=== PATIENT | female | born 1990 | race Caucasian/White ===

== ENCOUNTER 2016-03-29 20:02 | Emergency (ER) | payer SELFPAY ==
[2016-03-29] MEDS ORDERED: AUGMENTIN 875 MG TAB As Ordered ONE (21:52)
--- NOTE | 2016-03-29 22:34 | EDDOCDS ---
Nurse's Notes [facility] Name: Stephanie Palacios Age: 25 yrs Sex: Female : 1990 Arrival Date: 03/29/2016 Time: 20:02 Bed I8 / 16 Private MD: Obdulio Turner Diagnosis: Acute serous otitis media, left ear Presentation: 03/29 20:08 Presenting complaint: Patient states: Sore throat for two hours. states that it hurts jo3 to swallow. Risk factors: Stridor is not present. Drooling is not present. Shortness of breath is not present. Cellulitis is not present. Adult Sepsis Screening: The patient does not have new or worsening altered mentation. Patient's respiratory rate is less than 22. Systolic blood pressure is greater than 100. Patient has a qSOFA score of 0- Negative Sepsis Screen. Suicide/Homicide risk assessment- the patient denies having any suicidal and/or homicidal ideations and does not present with any other emotional, behavioral or mental health complaints. Status: Patient is not a conference services manager or dependent. Transition of care: patient was not received from another setting of care. 20:08 Acuity: LAURA Level 4 jo3 20:08 Method Of Arrival: Walkin/Carried/Asstd jo3 Triage Assessment: 20:10 General: Appears in no apparent distress, comfortable, Behavior is appropriate for age, jo3 cooperative. HIV screening NA for this visit Offered previously. Neurological: Level of Consciousness is awake, alert, Oriented to person, place, time. Respiratory: Airway is patent Respiratory effort is even, unlabored. 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 Effexor XR 150 mg Oral cp24 1 cap once daily - PMHx: Anxiety; Depression; Thyroid problem; - PSHx: none; - Social history: Smoking status: Patient states was never smoker of tobacco. No barriers to communication noted, The patient speaks fluent Zimbabwean, Speaks appropriately for age. - Family history: No immediate family members are acutely ill. - : The pt / caregiver states he / she is not on anticoagulants. Home medication list is obtained from the patient. - Exposure Risk Screening:: None identified. Screenin:32 Screening information is obtained from the patient. Fall risk: No risks identified. mb9 Assistance ADL's: requires no assistance with activities of daily living. Abuse/DV Screen: The patient / caregiver reports he/she is: not in a situation that causes fear, pain or injury. Nutritional screening: No deficits noted. Advance Directives: There is. Advance Directives: There is no active DNR order. home support is adequate. Assessment: 21:25 General: Appears uncomfortable, Behavior is appropriate for age, cooperative. Pain: mb9 Location: throat Pain currently is 7 out of 10 on a pain scale. EENT: Throat is reddened. Respiratory: Airway is patent Respiratory effort is even, unlabored. 22:32 Reassessment: Patient appears in no apparent distress at this time. General: Behavior mb9 is cooperative. Respiratory: Airway is patent Respiratory effort is even, unlabored. Vital Signs: 20:04 BP 128 / 76; Pulse 85; Resp 18 S; Temp 97.6(O); Pulse Ox 100% on R/A; Weight 148.78 kg gr2 (R); Height 5 ft. 5 in. (165.10 cm) (R); Pain 9/10; 22:32 BP 143 / 67; Pulse 87; Resp 17; Temp 98.3(O); Pulse Ox 99% ; mb9 20:04 Body Mass Index 54.58 (148.78 kg, 165.10 cm) gr2 Vitals: 20:04 Log In Time: March 29, 2016 at 20:04. gr2 21:48 Strep Screen is obtained and tested: Negative, a GATSNEG culture is ordered in [facility] and sent. ED Course: 20:03 Patient visited by Luca Salter. gr2 20:03 Patient moved to Waiting gr2 20:04 Obdulio Turner MD is Private Physician. gr2 20:06 Patient visited by Luca Salter. gr2 20:06 Patient moved to Pre RCE gr2 20:09 Triage Initiated jo3 20:11 Patient visited by Nicole Calles RN. jo3 20:52 Patient moved to I8 / 16 lf1 21:15 Samuel Lucero MD is Attending Physician. br1 21:25 Patient visited by Donell Ji RN. mb9 21:29 Patient visited by Samuel Lucero MD. br1 22:06 [facility] Payment Agreement was scanned into [employer] and attached to record. zo 22:09 Patient visited by Samuel Lucero MD. br1 22:17 Obdulio Turner MD is Referral Physician. br1 22:32 The patient / caregiver is instructed regarding the plan of care and ED course. mb9 22:32 No IV's were initiated during this patient's visit. No procedures done that require mb9 assistance. Administered Medications: 21:56 Drug: Amoxicillin-Clavulanate 1 tabs [amoxicillin 875 mg-potassium clavulanate 125 mg mb9 tablet (1 tabs)] Route: PO; Order Results: There are currently no results for this order. Outcome: 22:17 Discharge ordered by Provider. br1 22:32 Discharge Assessment: Patient awake, alert and oriented x 3. No cognitive and/or mb9 functional deficits noted. Patient verbalized understanding of disposition instructions. patient administered narcotics - no. The following High Risk Discharge criteria are identified: None. Discharged to home ambulatory. Condition: good Condition: stable Condition: improved. Discharge instructions given to patient, Instructed on discharge instructions, follow up and referral plans. medication usage, Demonstrated understanding of instructions, medications, Pt was receptive of discharge instructions/ teaching. Prescriptions given X 1. No special radiology studies were completed. Property :Personal belongings accompany Pt. 22:33 Patient left the ED. mb9 Signatures: Nicole Calles,RN RN james3 Eleanor Perdue LisaRN RN lf1 Samuel Lucero MD MD br1 Luca Salter 2 Donell JiRN RN mb9 MTDD
--- NOTE | 2016-03-29 22:34 | EDDOCDS ---
Physician Documentation [facility] Name: Stephanie Palacios Age: 25 yrs Sex: Female : 1990 Arrival Date: 03/29/2016 Time: 20:02 Bed I8 / 16 Private MD: Obdulio Turner Disposition: 03/29/16 22:17 Discharged to Home/Self Care. Impression: Acute serous otitis media, left ear. - Condition is Stable. - Discharge Instructions: Otitis Media, Adult. - Prescriptions for Augmentin 875- 125 mg Oral Tablet - take 1 tablet by ORAL route every 12 hours for 10 days; 20 tablet. - Medication Reconciliation, Local Pharmacy Hours form. - Follow up: Obdulio Turner MD; When: 1 - 2 days; Reason: Recheck today's complaints. - Problem is new. - Symptoms are unchanged. - Notes: You were seen in the ED for sore throat and ear pain. Strep screen is negative at this time however examination is concerning for a left ear infection. You may take the antibiotics as written. You may take Tylenol and Ibuprofen as needed for pain and fever, and may encourage plenty of clear fluids for hydration. Call your doctor in the morning to discuss the ED visit and arrange to be seen for recheck. Return to the ED for any worsening pain, trouble speaking or swallowing, trouble breathing, fever or any other concerns. Historical: - Allergies: No known drug Allergies; - Home Meds: 1. Effexor XR 150 mg Oral cp24 1 cap once daily - PMHx: Anxiety; Depression; Thyroid problem; - PSHx: none; - Social history: Smoking status: Patient states was never smoker of tobacco. No barriers to communication noted, The patient speaks fluent Filipino, Speaks appropriately for age. - Family history: No immediate family members are acutely ill. - : The pt / caregiver states he / she is not on anticoagulants. Home medication list is obtained from the patient. - Exposure Risk Screening:: None identified. 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 5 in. (165.10 cm) (R); Pain 9/10; 22:32 BP 143 / 67; Pulse 87; Resp 17; Temp 98.3(O); Pulse Ox 99% ; mb9 20:04 Body Mass Index 54.58 (148.78 kg, 165.10 cm) gr2 MDM: 21:29 Strep Screen, Nursing ordered. br1 21:32 Amoxicillin-Clavulanate 875 mg 1 tabs PO once ordered. br1 21:49 GATS (NEGATIVE STREP SCREEN) Ordered. EDMS 22:02 Financial registration complete. zo 22:06 [facility] Payment Agreement was scanned into [employer] and attached to record. zo Administered Medications: 21:56 Drug: Amoxicillin-Clavulanate 1 tabs [amoxicillin 875 mg-potassium clavulanate 125 mg mb9 tablet (1 tabs)] Route: PO; Signatures: Dispatcher [employer] EDMS Nicole Calles RN RN jo3 Eleanor Perdue Brian, MD MD br1 Donell Ji RN RN mb9 The chart was reviewed and I authenticate all verbal orders and agree with the evaluation and treatment provided.Attachments: 22:06 [facility] Payment Agreement zo MTDD
--- NOTE | 2016-03-31 23:34 | EDDOCDS ---
Nurse's Notes [facility] Name: Stephanie Palacios Age: 25 yrs Sex: Female : 1990 Arrival Date: 03/29/2016 Time: 20:02 Bed I8 / 16 Private MD: Obdulio Turner Diagnosis: Acute serous otitis media, left ear Presentation: 03/29 20:08 Presenting complaint: Patient states: Sore throat for two hours. states that it hurts jo3 to swallow. Risk factors: Stridor is not present. Drooling is not present. Shortness of breath is not present. Cellulitis is not present. Adult Sepsis Screening: The patient does not have new or worsening altered mentation. Patient's respiratory rate is less than 22. Systolic blood pressure is greater than 100. Patient has a qSOFA score of 0- Negative Sepsis Screen. Suicide/Homicide risk assessment- the patient denies having any suicidal and/or homicidal ideations and does not present with any other emotional, behavioral or mental health complaints. 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 Transition of care: patient was not received from another setting of care. 20:08 Acuity: LAURA Level 4 jo3 20:08 Method Of Arrival: Walkin/Carried/Asstd jo3 Triage Assessment: 20:10 General: Appears in no apparent distress, comfortable, Behavior is appropriate for age, jo3 cooperative. HIV screening NA for this visit Offered previously. Neurological: Level of Consciousness is awake, alert, Oriented to person, place, time. Respiratory: Airway is patent Respiratory effort is even, unlabored. 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 Effexor XR 150 mg Oral cp24 1 cap once daily - PMHx: Anxiety; Depression; Thyroid problem; - PSHx: none; - Social history: Smoking status: Patient states was never smoker of tobacco. No barriers to communication noted, The patient speaks fluent Hong Konger, Speaks appropriately for age. - Family history: No immediate family members are acutely ill. - : The pt / caregiver states he / she is not on anticoagulants. Home medication list is obtained from the patient. - Exposure Risk Screening:: None identified. Screenin:32 Screening information is obtained from the patient. Fall risk: No risks identified. mb9 Assistance ADL's: requires no assistance with activities of daily living. Abuse/DV Screen: The patient / caregiver reports he/she is: not in a situation that causes fear, pain or injury. Nutritional screening: No deficits noted. Advance Directives: There is. Advance Directives: There is no active DNR order. home support is adequate. Assessment: 21:25 General: Appears uncomfortable, Behavior is appropriate for age, cooperative. Pain: mb9 Location: throat Pain currently is 7 out of 10 on a pain scale. EENT: Throat is reddened. Respiratory: Airway is patent Respiratory effort is even, unlabored. 22:32 Reassessment: Patient appears in no apparent distress at this time. General: Behavior mb9 is cooperative. Respiratory: Airway is patent Respiratory effort is even, unlabored. Vital Signs: 20:04 BP 128 / 76; Pulse 85; Resp 18 S; Temp 97.6(O); Pulse Ox 100% on R/A; Weight 148.78 kg gr2 (R); Height 5 ft. 5 in. (165.10 cm) (R); Pain 9/10; 22:32 BP 143 / 67; Pulse 87; Resp 17; Temp 98.3(O); Pulse Ox 99% ; mb9 20:04 Body Mass Index 54.58 (148.78 kg, 165.10 cm) gr2 Vitals: 20:04 Log In Time: March 29, 2016 at 20:04. gr2 21:48 Strep Screen is obtained and tested: Negative, a GATSNEG culture is ordered in [facility] and sent. ED Course: 20:03 Patient visited by Luca Salter. gr2 20:03 Patient moved to Waiting gr2 20:04 Obdulio Turner MD is Private Physician. gr2 20:06 Patient visited by Luca Salter. gr2 20:06 Patient moved to Pre RCE gr2 20:09 Triage Initiated jo3 20:11 Patient visited by Nicole Calles RN. jo3 20:52 Patient moved to I8 / 16 lf1 21:15 Samuel Lucero MD is Attending Physician. br1 21:25 Patient visited by Donell Ji RN. mb9 21:29 Patient visited by Samuel Lucero MD. br1 22:06 [facility] Payment Agreement was scanned into [employer] and attached to record. zo 22:09 Patient visited by Samuel Lucero MD. br1 22:17 Obdulio Turner MD is Referral Physician. br1 22:32 The patient / caregiver is instructed regarding the plan of care and ED course. mb9 22:32 No IV's were initiated during this patient's visit. No procedures done that require mb9 assistance. 03/30 12:48 T-Sheet-- Draft Copy was scanned into [employer] and attached to record. gb Administered Medications: 03/29 21:56 Drug: Amoxicillin-Clavulanate 1 tabs [amoxicillin 875 mg-potassium clavulanate 125 mg mb9 tablet (1 tabs)] Route: PO; Order Results: Lab Order: GATS (NEGATIVE STREP SCREEN); SPEC'M 03/29/16 20:02 Test: GATS CULTURE (NEG STREP SCR); Value: GATS RESULT NEGATIVE FOR STREP PYOGENES (GROUP A); Status: F Test: GATS CULTURE (NEG STREP SCR); Value: <EXTERNAL COMMENT eCWMed> FULL REPORT IN LAB NOTES (eCW and Medent).; Status: F Outcome: 22:17 Discharge ordered by Provider. br1 22:32 Discharge Assessment: Patient awake, alert and oriented x 3. No cognitive and/or mb9 functional deficits noted. Patient verbalized understanding of disposition instructions. patient administered narcotics - no. The following High Risk Discharge criteria are identified: None. Discharged to home ambulatory. Condition: good Condition: stable Condition: improved. Discharge instructions given to patient, Instructed on discharge instructions, follow up and referral plans. medication usage, Demonstrated understanding of instructions, medications, Pt was receptive of discharge instructions/ teaching. Prescriptions given X 1. No special radiology studies were completed. Property :Personal belongings accompany Pt. 22:33 Patient left the ED. mb9 Signatures: Jessica Bowden, Nicole Levine,RN RN james3 Eleanor Perdue Lisa, RN RN lf1 Samuel Lucero MD MD br1 Luca Salter gr2 Donell Ji,RN RN mb9 Chart Complete MTDD
--- NOTE | 2016-03-31 23:34 | EDDOCDS ---
Physician Documentation [facility] Name: Stephanie Palacios Age: 25 yrs Sex: Female : 1990 Arrival Date: 03/29/2016 Time: 20:02 Bed I8 / 16 Private MD: Obdulio Turner Disposition: 03/29/16 22:17 Discharged to Home/Self Care. Impression: Acute serous otitis media, left ear. - Condition is Stable. - Discharge Instructions: Otitis Media, Adult. - Prescriptions for Augmentin 875- 125 mg Oral Tablet - take 1 tablet by ORAL route every 12 hours for 10 days; 20 tablet. - Medication Reconciliation, Local Pharmacy Hours form. - Follow up: Obdulio Turner MD; When: 1 - 2 days; Reason: Recheck today's complaints. - Problem is new. - Symptoms are unchanged. - Notes: You were seen in the ED for sore throat and ear pain. Strep screen is negative at this time however examination is concerning for a left ear infection. You may take the antibiotics as written. You may take Tylenol and Ibuprofen as needed for pain and fever, and may encourage plenty of clear fluids for hydration. Call your doctor in the morning to discuss the ED visit and arrange to be seen for recheck. Return to the ED for any worsening pain, trouble speaking or swallowing, trouble breathing, fever or any other concerns. Historical: - Allergies: No known drug Allergies; - Home Meds: 1. Effexor XR 150 mg Oral cp24 1 cap once daily - PMHx: Anxiety; Depression; Thyroid problem; - PSHx: none; - Social history: Smoking status: Patient states was never smoker of tobacco. No barriers to communication noted, The patient speaks fluent Kenyan, Speaks appropriately for age. - Family history: No immediate family members are acutely ill. - : The pt / caregiver states he / she is not on anticoagulants. Home medication list is obtained from the patient. - Exposure Risk Screening:: None identified. 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 5 in. (165.10 cm) (R); Pain 9/10; 22:32 BP 143 / 67; Pulse 87; Resp 17; Temp 98.3(O); Pulse Ox 99% ; mb9 20:04 Body Mass Index 54.58 (148.78 kg, 165.10 cm) gr2 MDM: 21:29 Strep Screen, Nursing ordered. br1 21:32 Amoxicillin-Clavulanate 875 mg 1 tabs PO once ordered. br1 21:49 GATS (NEGATIVE STREP SCREEN) Ordered. EDMS 22:02 Financial registration complete. zo 22: [facility] Payment Agreement was scanned into [employer] and attached to record. zo 03/30 12:48 T-Sheet-- Draft Copy was scanned into [employer] and attached to record. gb Administered Medications: 03/29 21:56 Drug: Amoxicillin-Clavulanate 1 tabs [amoxicillin 875 mg-potassium clavulanate 125 mg mb9 tablet (1 tabs)] Route: PO; Signatures: Dispatcher [employer] EDMT Jessica Bowden, Reg Reg Nicole Nunez,RN RN jo3 Eleanor Perdue Brian, MD MD br1 Donell Ji,RN RN mb9 The chart was reviewed and I authenticate all verbal orders and agree with the evaluation and treatment provided.Attachments: 22:06 [facility] Payment Agreement zo 03/30 12:48 T-Sheet-- Draft Copy gb Chart Complete MTDD
--- NOTE | 2016-03-31 23:34 | EDDOCDS ---
Physician Documentation [facility] Name: Stephanie Palacios Age: 25 yrs Sex: Female : 1990 Arrival Date: 03/29/2016 Time: 20:02 Bed I8 / 16 Private MD: Obdulio Turner Disposition: 03/29/16 22:17 Discharged to Home/Self Care. Impression: Acute serous otitis media, left ear. - Condition is Stable. - Discharge Instructions: Otitis Media, Adult. - Prescriptions for Augmentin 875- 125 mg Oral Tablet - take 1 tablet by ORAL route every 12 hours for 10 days; 20 tablet. - Medication Reconciliation, Local Pharmacy Hours form. - Follow up: Obdulio Turner MD; When: 1 - 2 days; Reason: Recheck today's complaints. - Problem is new. - Symptoms are unchanged. - Notes: You were seen in the ED for sore throat and ear pain. Strep screen is negative at this time however examination is concerning for a left ear infection. You may take the antibiotics as written. You may take Tylenol and Ibuprofen as needed for pain and fever, and may encourage plenty of clear fluids for hydration. Call your doctor in the morning to discuss the ED visit and arrange to be seen for recheck. Return to the ED for any worsening pain, trouble speaking or swallowing, trouble breathing, fever or any other concerns. Historical: - Allergies: No known drug Allergies; - Home Meds: 1. Effexor XR 150 mg Oral cp24 1 cap once daily - PMHx: Anxiety; Depression; Thyroid problem; - PSHx: none; - Social history: Smoking status: Patient states was never smoker of tobacco. No barriers to communication noted, The patient speaks fluent Gibraltarian, Speaks appropriately for age. - Family history: No immediate family members are acutely ill. - : The pt / caregiver states he / she is not on anticoagulants. Home medication list is obtained from the patient. - Exposure Risk Screening:: None identified. 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 5 in. (165.10 cm) (R); Pain 9/10; 22:32 BP 143 / 67; Pulse 87; Resp 17; Temp 98.3(O); Pulse Ox 99% ; mb9 20:04 Body Mass Index 54.58 (148.78 kg, 165.10 cm) gr2 MDM: 21:29 Strep Screen, Nursing ordered. br1 21:32 Amoxicillin-Clavulanate 875 mg 1 tabs PO once ordered. br1 21:49 GATS (NEGATIVE STREP SCREEN) Ordered. EDMS 22:02 Financial registration complete. zo 22: [facility] Payment Agreement was scanned into [employer] and attached to record. zo 03/30 12:48 T-Sheet-- Draft Copy was scanned into [employer] and attached to record. gb Administered Medications: 03/29 21:56 Drug: Amoxicillin-Clavulanate 1 tabs [amoxicillin 875 mg-potassium clavulanate 125 mg mb9 tablet (1 tabs)] Route: PO; Signatures: Dispatcher [employer] EDVT Jessica Bowden, Reg Reg Nicole Nunez,RN RN jo3 Eleanor Perdue Brian, MD MD br1 Donell Ji,RN RN mb9 The chart was reviewed and I authenticate all verbal orders and agree with the evaluation and treatment provided.Attachments: 22:06 [facility] Payment Agreement zo 03/30 12:48 T-Sheet-- Draft Copy gb Chart Complete MTDD
== END 2016-03-29 22:33 | disposition home or self-care (01) ==
LOC: M ED 20:02
DX: H65.02 Acute serous otitis media, left ear (principal); F41.9 Anxiety disorder, unspecified; F32.9 Major depressive disorder, single episode, unspecified; E07.9 Disorder of thyroid, unspecified; Z79.899 Other long term (current) drug therapy

== ENCOUNTER 2016-04-12 20:09 | Emergency (ER) | payer SELFPAY ==
[2016-04-12] MEDS ORDERED: IPRATROPIUM 0.5MG/ALBUTEROL 2.5MG INH SOL UD 3ML (DUONEB)(J7620) As Ordered ONE (21:03)
[2016-04-12] MEDS ORDERED: MOXIFLOXACIN 400 MG TAB As Ordered ONE (21:13)
--- NOTE | 2016-04-12 22:43 | EDDOCDS ---
Physician Documentation [facility] Name: Stephanie Palacios Age: 25 yrs Sex: Female : 1990 Arrival Date: 04/12/2016 Time: 20:09 Bed 10 Private MD: NO PRIMARY PHYSICIAN, . Disposition: 04/12/16 22:17 Discharged to Home/Self Care. Impression: Pneumonia, unspecified organism. - Condition is Stable. - Discharge Instructions: Pneumonia, Adult. - Prescriptions for Moxifloxacin 400 mg Oral Tablet - take 1 tablet by ORAL route once daily; 10 tablet. benzonatate 200 mg Oral Capsule - take 1 capsule by ORAL route 3 times per day As needed; 30 capsule. Albuterol Sulfate 90 mcg/actuation Inhalation HFA Aerosol Inhaler - inhale 2 puff by INHALATION route every 4 hours As needed; 1 Inhaler. - Medication Reconciliation, Local Pharmacy Hours form. - [facility]; When: 2 - 3 days; Reason: Recheck today's complaints, Continuance of care. - Problem is an ongoing problem. - Symptoms are unchanged. Historical: - Allergies: no known allergies; - Home Meds: 1. Effexor XR 150 mg Oral cp24 1 cap once daily 2. Albuterol Inhl every 4 hours as needed - PMHx: Anxiety; Depression; Thyroid problem; - PSHx: none; - Social history: Smoking status: Patient states was never smoker of tobacco. No barriers to communication noted, The patient speaks fluent Danish. - Family history: Not pertinent. - : The pt / caregiver states he / she is not on anticoagulants. Home medication list is obtained from the patient. - Exposure Risk Screening:: None identified. 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 5 in. (165.10 cm) (R); Pain 6/10; 22:40 BP 132 / 58; Pulse 74; Resp 18; Temp 97.8(O); Pulse Ox 98% on R/A; Pain 0/10; tm5 20:11 Body Mass Index 54.25 (147.87 kg, 165.10 cm) gr2 MDM: 20:50 Chest, 2 View (pa\E\lat) Ordered. EDMS 20:53 Albuterol-Ipratropium 1 neb Nebulizer every 20 minutes x3 ordered. ke 20:53 Call Respiratory ordered. ke 20:53 Moxifloxacin 400 mg PO once ordered. ke 20:59 Call Respiratory complete. kb5 21:04 Financial registration complete. gjb 21:08 [facility] Payment Agreement was scanned into [employer] and attached to record. gjb Administered Medications: 21:05 Drug: Albuterol-Ipratropium 1 neb [ipratropium-albuterol 0.5 mg-3 mg(2.5 mg base)/3 mL jh6 nebulization soln (1 neb)] Route: Nebulizer; 21:16 Drug: Moxifloxacin 400 mg [moxifloxacin 400 mg tablet (1 tabs)] Route: PO; tm5 Signatures: Dispatcher MedHost EDMS Bridger Booker, LANE ATTENDANT LANE ATTENDANT Cruz Whitehead, PENSION ADMINISTRATOR PENSION ADMINISTRATOR kb5 Jennifer Mack,RN RN [id number] Sheila Watkins gjb Brittany WangRN RN tm5 Olivier Muniz jh6 The chart was reviewed and I authenticate all verbal orders and agree with the evaluation and treatment provided.Attachments: 21:08 [facility] Payment Agreement gjb MTDD
--- NOTE | 2016-04-12 22:43 | EDDOCDS ---
Nurse's Notes [facility] Name: Stephanie Palacios Age: 25 yrs Sex: Female : 1990 Arrival Date: 04/12/2016 Time: 20:09 Bed 10 Private MD: NO PRIMARY PHYSICIAN, . Diagnosis: Pneumonia, unspecified organism Presentation: 04/12 20:27 Presenting complaint: Patient states: she has a cough that started a month ago, non ms18 productive. Adult Sepsis Screening: The patient does not have new or worsening altered mentation. Patient's respiratory rate is less than 22. Systolic blood pressure is greater than 100. Patient has a qSOFA score of 0- Negative Sepsis Screen. Suicide/Homicide risk assessment- the patient denies having any suicidal and/or homicidal ideations and does not present with any other emotional, behavioral or mental health complaints. Status: Patient is not a service line layer or dependent. Transition of care: patient was not received from another setting of care. 20:27 Acuity: LUARA Level 4 ms18 20:27 Method Of Arrival: Walkin/Carried/Asstd ms18 Triage Assessment: 20:29 General: Appears in no apparent distress, comfortable, obese, Behavior is appropriate ms18 for age, cooperative. Pain: Location: right lateral posterior chest Pain currently is 5 out of 10 on a pain scale. At worst was 10 out of 10 on a pain scale. HIV screening NA for this visit Offered previously. Neurological: No deficits noted. Respiratory: Onset: The symptoms/episode began/occurred 1 month, Airway is patent Respiratory effort is even, unlabored. Derm: Skin is pink, warm & dry. normal. 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 Effexor XR 150 mg Oral cp24 1 cap once daily 2. Albuterol Inhl every 4 hours as needed - PMHx: Anxiety; Depression; Thyroid problem; - PSHx: none; - Social history: Smoking status: Patient states was never smoker of tobacco. No barriers to communication noted, The patient speaks fluent Iraqi. - Family history: Not pertinent. - : The pt / caregiver states he / she is not on anticoagulants. Home medication list is obtained from the patient. - Exposure Risk Screening:: None identified. Screenin:55 Screening information is obtained from the patient. Fall risk: No risks identified. tm5 Assistance ADL's: requires no assistance with activities of daily living. Abuse/DV Screen: The patient / caregiver reports he/she is: not in a situation that causes fear, pain or injury. Nutritional screening: No deficits noted. Advance Directives: There is no active DNR order. home support is adequate. Assessment: 20:55 General: Appears in no apparent distress, Behavior is appropriate for age, cooperative. tm5 Pain: Denies pain. Neurological: Level of Consciousness is awake, alert, Oriented to person, place, time. Cardiovascular: No deficits noted. Cardiovascular: Chest pain is denied. Respiratory: Airway is patent Respiratory effort is even, unlabored, Respiratory pattern is regular, symmetrical, Breath sounds are clear bilaterally. Derm: Skin is pink, warm & dry. 22:40 Reassessment: Patient appears in no apparent distress at this time. Patient states tm5 feeling better. Patient states symptoms have improved. Vital Signs: 20:11 BP 149 / 85; Pulse 85; Resp 18 S; Temp 97.4(O); Pulse Ox 97% on R/A; Weight 147.87 kg gr2 (R); Height 5 ft. 5 in. (165.10 cm) (R); Pain 6/10; 22:40 BP 132 / 58; Pulse 74; Resp 18; Temp 97.8(O); Pulse Ox 98% on R/A; Pain 0/10; tm5 20:11 Body Mass Index 54.25 (147.87 kg, 165.10 cm) gr2 Vitals: 20:11 Log In Time: April 12, 2016 at 20:11. gr2 ED Course: 20:10 Patient visited by Luca Salter. gr2 20:10 Patient moved to Waiting gr2 20:11 NO PRIMARY PHYSICIAN, . is Private Physician. gr2 20:12 Patient visited by Luca Salter. gr2 20:12 Patient moved to Pre RCE gr2 20:28 Triage Initiated ms18 20:43 [facility] ke 20:43 Patient visited by Bridger Booker FNP. ke 20:43 Patient visited by Brigder Booker FNP. ke 20:43 Patient moved to 10 b 20:55 Waiting to go to radiology. tm5 20:55 The patient / caregiver is instructed regarding the plan of care and ED course. tm5 21:08 [facility] Payment Agreement was scanned into [employer] and attached to record. gjb 21:14 Patient visited by Bridger Booker FNP. ke 21:38 Patient visited by Bridger Booker FNP. ke 22:01 Patient visited by Brittany Wang RN. tm5 22:01 Patient moved back from radiology. tm5 22:17 [facility] is Referral Physician. ke 22:40 Patient visited by Brittany Wang RN. tm5 22:40 No IV's were initiated during this patient's visit. No procedures done that require tm5 assistance. Administered Medications: 21:05 Drug: Albuterol-Ipratropium 1 neb [ipratropium-albuterol 0.5 mg-3 mg(2.5 mg base)/3 mL jh6 nebulization soln (1 neb)] Route: Nebulizer; 21:16 Drug: Moxifloxacin 400 mg [moxifloxacin 400 mg tablet (1 tabs)] Route: PO; tm5 RT: 21:05 Initial Med Neb Given as ordered Patient was instructed and evaluated on procedure jh6 Patient tolerated procedure well without adverse effect. Respiratory: Airway is patent Respiratory effort is even, unlabored, Respiratory pattern is regular symmetrical, Breath sounds are clear in left posterior upper lobe, right posterior upper lobe, left posterior lower lobe, right posterior middle lobe and right posterior lower lobe. 21:11 Respiratory: Airway is patent Respiratory effort is even, unlabored, Respiratory jh6 pattern is regular symmetrical, Breath sounds are clear in right upper lobe, left upper lobe, right middle lobe, left lower lobe, right lower lobe, left posterior upper lobe, right posterior upper lobe, left posterior lower lobe, right posterior middle lobe and right posterior lower lobe Reports nebs make her cough more which causes pain. Order Results: There are currently no results for this order. Outcome: 22:17 Discharge ordered by Provider. ke 22:40 Discharge Assessment: Patient awake, alert and oriented x 3. No cognitive and/or tm5 functional deficits noted. Patient verbalized understanding of disposition instructions. patient administered narcotics - no. The following High Risk Discharge criteria are identified: None. Discharged to home ambulatory. Condition: good Condition: stable Condition: improved. Discharge instructions given to patient, Instructed on discharge instructions, follow up and referral plans. medication usage, Demonstrated understanding of instructions, medications, Pt was receptive of discharge instructions/ teaching. Prescriptions given X 3. No special radiology studies were completed. Property :Personal belongings accompany Pt. 22:41 Patient left the ED. tm5 Signatures: Bridger Booker, JAVA TECH Olivier Simms jh6 Luca Salter gr2 Obed Corral,RN RN Jennifer Root RN RN ms18 Sheila Watkins Tonya,RN RN tm5 MTDD
--- NOTE | 2016-04-13 07:56 | REP ---
Clinical: Acute cough . Comparison: 12/10/2013 . Technique: PA and lateral. Findings: The mediastinum and cardiac silhouette are normal. The lung malik are clear and without acute consolidation, effusion, or pneumothorax. The skeletal structures are intact and normal. Impression: 1. No acute cardiopulmonary process. Signed by Pedro Pichardo MD 04/13/2016 07:48 A
--- NOTE | 2016-04-14 23:43 | EDDOCDS ---
Physician Documentation [facility] Name: Stephanie Palacios Age: 25 yrs Sex: Female : 1990 Arrival Date: 04/12/2016 Time: 20:09 Bed 10 Private MD: NO PRIMARY PHYSICIAN, . Disposition: 04/12/16 22:17 Discharged to Home/Self Care. Impression: Pneumonia, unspecified organism. - Condition is Stable. - Discharge Instructions: Pneumonia, Adult. - Prescriptions for Moxifloxacin 400 mg Oral Tablet - take 1 tablet by ORAL route once daily; 10 tablet. benzonatate 200 mg Oral Capsule - take 1 capsule by ORAL route 3 times per day As needed; 30 capsule. Albuterol Sulfate 90 mcg/actuation Inhalation HFA Aerosol Inhaler - inhale 2 puff by INHALATION route every 4 hours As needed; 1 Inhaler. - Medication Reconciliation, Local Pharmacy Hours form. - Follow up: [facility]; When: 2 - 3 days; Reason: Recheck today's complaints, Continuance of care. - Problem is an ongoing problem. - Symptoms are unchanged. Historical: - Allergies: no known allergies; - Home Meds: 1. Effexor XR 150 mg Oral cp24 1 cap once daily 2. Albuterol Inhl every 4 hours as needed - PMHx: Anxiety; Depression; Thyroid problem; - PSHx: none; - Social history: Smoking status: Patient states was never smoker of tobacco. No barriers to communication noted, The patient speaks fluent Sami. - Family history: Not pertinent. - : The pt / caregiver states he / she is not on anticoagulants. Home medication list is obtained from the patient. - Exposure Risk Screening:: None identified. 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 5 in. (165.10 cm) (R); Pain 6/10; 22:40 BP 132 / 58; Pulse 74; Resp 18; Temp 97.8(O); Pulse Ox 98% on R/A; Pain 0/10; tm5 20:11 Body Mass Index 54.25 (147.87 kg, 165.10 cm) gr2 MDM: 20:50 Chest, 2 View (pa\E\lat) Ordered. EDMS 20:53 Albuterol-Ipratropium 1 neb Nebulizer every 20 minutes x3 ordered. ke 20:53 Call Respiratory ordered. ke 20:53 Moxifloxacin 400 mg PO once ordered. ke 20:59 Call Respiratory complete. kb5 21:04 Financial registration complete. [facility] Payment Agreement was scanned into [employer] and attached to record. [facility] 04/13 13:42 T-Sheet-- Draft Copy was scanned into [employer] and attached to record. gb Administered Medications: 04/12 21:05 Drug: Albuterol-Ipratropium 1 neb [ipratropium-albuterol 0.5 mg-3 mg(2.5 mg base)/3 mL jh6 nebulization soln (1 neb)] Route: Nebulizer; 21:16 Drug: Moxifloxacin 400 mg [moxifloxacin 400 mg tablet (1 tabs)] Route: PO; tm5 Signatures: Dispatcher [employer] EDMS Jessica Bowden, Reg Reg gb Bridger Booker, ENTERPRISE ARCHITECT MANAGER ENTERPRISE ARCHITECT MANAGER ke Cruz Norwood, CLASS B TRUCK DRIVER CLASS B TRUCK DRIVER kb5 Jennifer Mack,ARABELLA RN ms18 Sheila Watkins [facility] Brittany Wang RN RN tm5 Olivier Muniz jh6 The chart was reviewed and I authenticate all verbal orders and agree with the evaluation and treatment provided.Attachments: : [facility] Payment Agreement [facility] 04/13 13:42 T-Sheet-- Draft Copy gb Chart Complete MTDD
--- NOTE | 2016-04-14 23:43 | EDDOCDS ---
Physician Documentation [facility] Name: Stephanie Palacios Age: 25 yrs Sex: Female : 1990 Arrival Date: 04/12/2016 Time: 20:09 Bed 10 Private MD: NO PRIMARY PHYSICIAN, . Disposition: 04/12/16 22:17 Discharged to Home/Self Care. Impression: Pneumonia, unspecified organism. - Condition is Stable. - Discharge Instructions: Pneumonia, Adult. - Prescriptions for Moxifloxacin 400 mg Oral Tablet - take 1 tablet by ORAL route once daily; 10 tablet. benzonatate 200 mg Oral Capsule - take 1 capsule by ORAL route 3 times per day As needed; 30 capsule. Albuterol Sulfate 90 mcg/actuation Inhalation HFA Aerosol Inhaler - inhale 2 puff by INHALATION route every 4 hours As needed; 1 Inhaler. - Medication Reconciliation, Local Pharmacy Hours form. - Follow up: [facility]; When: 2 - 3 days; Reason: Recheck today's complaints, Continuance of care. - Problem is an ongoing problem. - Symptoms are unchanged. Historical: - Allergies: no known allergies; - Home Meds: 1. Effexor XR 150 mg Oral cp24 1 cap once daily 2. Albuterol Inhl every 4 hours as needed - PMHx: Anxiety; Depression; Thyroid problem; - PSHx: none; - Social history: Smoking status: Patient states was never smoker of tobacco. No barriers to communication noted, The patient speaks fluent Lithuanian. - Family history: Not pertinent. - : The pt / caregiver states he / she is not on anticoagulants. Home medication list is obtained from the patient. - Exposure Risk Screening:: None identified. 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 5 in. (165.10 cm) (R); Pain 6/10; 22:40 BP 132 / 58; Pulse 74; Resp 18; Temp 97.8(O); Pulse Ox 98% on R/A; Pain 0/10; tm5 20:11 Body Mass Index 54.25 (147.87 kg, 165.10 cm) gr2 MDM: 20:50 Chest, 2 View (pa\E\lat) Ordered. EDMS 20:53 Albuterol-Ipratropium 1 neb Nebulizer every 20 minutes x3 ordered. ke 20:53 Call Respiratory ordered. ke 20:53 Moxifloxacin 400 mg PO once ordered. ke 20:59 Call Respiratory complete. kb5 21:04 Financial registration complete. [facility] : [facility] Payment Agreement was scanned into [employer] and attached to record. [facility] 04/13 13:42 T-Sheet-- Draft Copy was scanned into [employer] and attached to record. gb Administered Medications: 04/12 21:05 Drug: Albuterol-Ipratropium 1 neb [ipratropium-albuterol 0.5 mg-3 mg(2.5 mg base)/3 mL jh6 nebulization soln (1 neb)] Route: Nebulizer; 21:16 Drug: Moxifloxacin 400 mg [moxifloxacin 400 mg tablet (1 tabs)] Route: PO; tm5 Signatures: Dispatcher [employer] EDMS Jessica Bowden, Reg Reg gb Bridger Booker, DRAWING KILN OPERATOR DRAWING KILN OPERATOR ke Cruz Norwood, HORSE RACER HORSE RACER kb5 Jennifer Mack,ARABELLA RN ms18 Sheila Watkins [facility] Brittany Wang RN RN tm5 Olivier Muniz jh6 The chart was reviewed and I authenticate all verbal orders and agree with the evaluation and treatment provided.Attachments: : [facility] Payment Agreement [facility] 04/13 13:42 T-Sheet-- Draft Copy gb Chart Complete MTDD
--- NOTE | 2016-04-14 23:43 | EDDOCDS ---
Nurse's Notes [facility] Name: Stephanie Palacios Age: 25 yrs Sex: Female : 1990 Arrival Date: 04/12/2016 Time: 20:09 Bed 10 Private MD: NO PRIMARY PHYSICIAN, . Diagnosis: Pneumonia, unspecified organism Presentation: 04/12 20:27 Presenting complaint: Patient states: she has a cough that started a month ago, non ms18 productive. Adult Sepsis Screening: The patient does not have new or worsening altered mentation. Patient's respiratory rate is less than 22. Systolic blood pressure is greater than 100. Patient has a qSOFA score of 0- Negative Sepsis Screen. Suicide/Homicide risk assessment- the patient denies having any suicidal and/or homicidal ideations and does not present with any other emotional, behavioral or mental health complaints. Status: Patient is not a supervisor gate services or dependent. Transition of care: patient was not received from another setting of care. 20:27 Acuity: LAURA Level 4 ms18 20:27 Method Of Arrival: Walkin/Carried/Asstd ms18 Triage Assessment: 20:29 General: Appears in no apparent distress, comfortable, obese, Behavior is appropriate ms18 for age, cooperative. Pain: Location: right lateral posterior chest Pain currently is 5 out of 10 on a pain scale. At worst was 10 out of 10 on a pain scale. HIV screening NA for this visit Offered previously. Neurological: No deficits noted. Respiratory: Onset: The symptoms/episode began/occurred 1 month, Airway is patent Respiratory effort is even, unlabored. Derm: Skin is pink, warm & dry. normal. 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 Effexor XR 150 mg Oral cp24 1 cap once daily 2. Albuterol Inhl every 4 hours as needed - PMHx: Anxiety; Depression; Thyroid problem; - PSHx: none; - Social history: Smoking status: Patient states was never smoker of tobacco. No barriers to communication noted, The patient speaks fluent Surinamese. - Family history: Not pertinent. - : The pt / caregiver states he / she is not on anticoagulants. Home medication list is obtained from the patient. - Exposure Risk Screening:: None identified. Screenin:55 Screening information is obtained from the patient. Fall risk: No risks identified. tm5 Assistance ADL's: requires no assistance with activities of daily living. Abuse/DV Screen: The patient / caregiver reports he/she is: not in a situation that causes fear, pain or injury. Nutritional screening: No deficits noted. Advance Directives: There is no active DNR order. home support is adequate. Assessment: 20:55 General: Appears in no apparent distress, Behavior is appropriate for age, cooperative. tm5 Pain: Denies pain. Neurological: Level of Consciousness is awake, alert, Oriented to person, place, time. Cardiovascular: No deficits noted. Cardiovascular: Chest pain is denied. Respiratory: Airway is patent Respiratory effort is even, unlabored, Respiratory pattern is regular, symmetrical, Breath sounds are clear bilaterally. Derm: Skin is pink, warm & dry. 22:40 Reassessment: Patient appears in no apparent distress at this time. Patient states tm5 feeling better. Patient states symptoms have improved. Vital Signs: 20:11 BP 149 / 85; Pulse 85; Resp 18 S; Temp 97.4(O); Pulse Ox 97% on R/A; Weight 147.87 kg gr2 (R); Height 5 ft. 5 in. (165.10 cm) (R); Pain 6/10; 22:40 BP 132 / 58; Pulse 74; Resp 18; Temp 97.8(O); Pulse Ox 98% on R/A; Pain 0/10; tm5 20:11 Body Mass Index 54.25 (147.87 kg, 165.10 cm) gr2 Vitals: 20:11 Log In Time: April 12, 2016 at 20:11. gr2 ED Course: 20:10 Patient visited by Luca Salter. gr2 20:10 Patient moved to Waiting gr2 20:11 NO PRIMARY PHYSICIAN, . is Private Physician. gr2 20:12 Patient visited by Luca Salter. gr2 20:12 Patient moved to Pre RCE gr2 20:28 Triage Initiated ms18 20:43 [facility] ke 20:43 Patient visited by Bridger Booker FNP. ke 20:43 Patient visited by Bridger Booker FNP. ke 20:43 Patient moved to 10 b 20:55 Waiting to go to radiology. tm5 20:55 The patient / caregiver is instructed regarding the plan of care and ED course. tm5 21:08 [facility] Payment Agreement was scanned into [email or web address] and attached to record. gjb 21:14 Patient visited by Bridger Booker FNP. ke 21:38 Patient visited by Bridger Booker FNP. ke 22:01 Patient visited by Brittany Wang RN. tm5 22:01 Patient moved back from radiology. tm5 22:17 [facility] is Referral Physician. ke 22:40 Patient visited by Brittany Wang RN. tm5 22:40 No IV's were initiated during this patient's visit. No procedures done that require tm5 assistance. 04/13 08:33 Chest, 2 View (pa\E\lat) Returned. EDMS 13:42 T-Sheet-- Draft Copy was scanned into [email or web address] and attached to record. gb Administered Medications: 04/12 21:05 Drug: Albuterol-Ipratropium 1 neb [ipratropium-albuterol 0.5 mg-3 mg(2.5 mg base)/3 mL jh6 nebulization soln (1 neb)] Route: Nebulizer; 21:16 Drug: Moxifloxacin 400 mg [moxifloxacin 400 mg tablet (1 tabs)] Route: PO; tm5 RT: 21:05 Initial Med Neb Given as ordered Patient was instructed and evaluated on procedure jh6 Patient tolerated procedure well without adverse effect. Respiratory: Airway is patent Respiratory effort is even, unlabored, Respiratory pattern is regular symmetrical, Breath sounds are clear in left posterior upper lobe, right posterior upper lobe, left posterior lower lobe, right posterior middle lobe and right posterior lower lobe. 21:11 Respiratory: Airway is patent Respiratory effort is even, unlabored, Respiratory jh6 pattern is regular symmetrical, Breath sounds are clear in right upper lobe, left upper lobe, right middle lobe, left lower lobe, right lower lobe, left posterior upper lobe, right posterior upper lobe, left posterior lower lobe, right posterior middle lobe and right posterior lower lobe Reports nebs make her cough more which causes pain. Order Results: Radiology Order: Chest, 2 View (pa\E\lat) Test: Chest, 2 View (pa\E\lat) REASON FOR EXAMINATION: Cough; Clinical: Acute cough .; ; Comparison: 12/10/2013 .; ; Technique: PA and lateral.; ; Findings:; The mediastinum and cardiac silhouette are normal. The lung malik are clear and; without acute consolidation, effusion, or pneumothorax. The skeletal structures; are intact and normal.; ; Impression:; 1. No acute cardiopulmonary process.; ; ; Signed by; Pedro Pichardo MD 04/13/2016 07:48 A; Outcome: 22:17 Discharge ordered by Provider. ashanti 22:40 Discharge Assessment: Patient awake, alert and oriented x 3. No cognitive and/or tm5 functional deficits noted. Patient verbalized understanding of disposition instructions. patient administered narcotics - no. The following High Risk Discharge criteria are identified: None. Discharged to home ambulatory. Condition: good Condition: stable Condition: improved. Discharge instructions given to patient, Instructed on discharge instructions, follow up and referral plans. medication usage, Demonstrated understanding of instructions, medications, Pt was receptive of discharge instructions/ teaching. Prescriptions given X 3. No special radiology studies were completed. Property :Personal belongings accompany Pt. 22:41 Patient left the ED. tm5 Signatures: Dispatcher [employer] EDMS Jessica Bowden, Reg Reg gb Bridger Booker, REAL TIME TRADER REAL TIME TRADER Olivier Keller jh6 Luca Salter gr2 Obed Corral,RN RN Jennifer Root,ARABELLA RN ms18 Sheila Watkins Tonya, RN RN tm5 Chart Complete MTDD
== END 2016-04-12 22:41 | disposition home or self-care (01) ==
LOC: M ED 20:09
DX: J18.9 Pneumonia, unspecified organism (principal); F41.9 Anxiety disorder, unspecified; F32.9 Major depressive disorder, single episode, unspecified; E07.9 Disorder of thyroid, unspecified; Z79.899 Other long term (current) drug therapy

== ENCOUNTER → 2016-05-17 | Outpatient (CLI) | payer OTHER | LOC: M RAD 07:57 | PROVIDERS: ATTEND Family Medicine | DX: Z12.39 Encounter for other screening for malignant neoplasm of breast (principal) ==